=== PATIENT | female | born 1980 | race African-American/Black ===

== ENCOUNTER 2022-01-29 18:58 | Emergency (ER) | payer MEDICAID ==
[~2022-01-29] VITALS: Ht 165.1 cm; Wt 81.5 kg
[2022-01-29 23:49] LABS: BASOPHILS % 0.3 % (0.0-2.0); EOSINOPHILS % 1.9 % (0.0-5.0); HEMATOCRIT. 42.3 % (36.0-48.0); LYMPHOCYTES % 39.1 % (20.0-50.0); MEAN CORPUSCULAR HEMOGLOBIN 30.5 pg (28.0-32.0); MEAN CORPUSCULAR VOLUME 92.1 fL (81.0-99.0); MEAN PLATELET VOLUME 8.5 fl (7.4-10.4); MONOCYTES % 5.1 % (2.0-8.0); NEUTROPHILS % 53.6 % (40.0-76.0); PLATELET 245 x1000/uL (130-400); RED BLOOD CELL COUNT 4.59 mill/uL (4.2-5.4); RED CELL DISTRIBUTION WIDTH 13.4 % (11.6-14.6)
[2022-01-29 23:56] LABS: CHLORIDE 106 mEq/L (98-107)
[2022-01-30] MEDS ORDERED: NEOM28.37 TP (01:34)
[2022-01-30 01:59] VITALS: BP 112/74
== END 2022-01-30 02:00 | disposition home or self-care (01) ==
LOC: ER 18:58
DX: R42 Dizziness and giddiness (principal); L01.00 Impetigo, unspecified; R53.1 Weakness
CPT/HCPCS: 36415; 80053; 81025; 84484; 85025; 93005; 99285

== ENCOUNTER 2022-04-02 10:38 | Emergency (ER) | payer MEDICAID ==
[~2022-04-02] VITALS: Ht 165.1 cm; Wt 79.0 kg
[~2022-04-02 10:38] MED LIST: NEOM28.37 TP
[2022-04-02 11:28] VITALS: BP 138/94
[2022-04-02] MEDS ORDERED: CLOT15CR27 TP ×3 (12:24→12:28)
[2022-04-02] MEDS ORDERED: SULF1TAB48 PO ×3 (12:24→12:28)
[2022-04-02] MEDS ORDERED: DIF15 PO ×3 (12:24→12:28)
== END 2022-04-02 13:26 | disposition home or self-care (01) ==
LOC: ER 10:38
DX: B35.3 Tinea pedis (principal); L03.115 Cellulitis of right lower limb; R03.0 Elevated blood-pressure reading, without diagnosis of hypertension
CPT/HCPCS: 99283

== ENCOUNTER 2022-05-05 20:41 | Emergency (ER) | payer MEDICAID ==
[~2022-05-05] VITALS: Ht 167.6 cm; Wt 81.6 kg
[~2022-05-05 20:41] MED LIST changes: +CLOT15CR27 TP; +DIF15 PO; +SULF1TAB48 PO
[2022-05-05] MEDS ORDERED: ACETAMINOPHEN 325MG TABLET PO ONE (21:30)
[2022-05-05] MEDS ORDERED: CEPHALEXIN 250MG CAPSULE PO ONE (21:30)
[2022-05-05] MEDS ORDERED: ACET-2708 MT (21:34)
[2022-05-05] MEDS ORDERED: CEPH500C2 MT (21:34)
[2022-05-05 22:12] VITALS: BP 141/83
== END 2022-05-05 23:07 | disposition home or self-care (01) ==
LOC: ER 20:41
DX: L30.9 Dermatitis, unspecified (principal); R03.0 Elevated blood-pressure reading, without diagnosis of hypertension
CPT/HCPCS: 99283; Z7610

== ENCOUNTER 2022-07-05 14:38 | Emergency (ER) | payer MEDICAID, OTHER ==
[~2022-07-05] VITALS: Ht 170.2 cm; Wt 75.0 kg
[~2022-07-05 14:38] MED LIST changes: +ACET-2708 MT; +CEPH500C2 MT
[2022-07-05 14:57] VITALS: BP 148/98
== END 2022-07-05 18:56 | disposition left against medical advice (07) ==
LOC: ER 14:38
DX: Z53.21 Procedure and treatment not carried out due to patient leaving prior to being seen by health care provider (principal)